=== PATIENT | male | born 1990 | race African-American/Black ===

== ENCOUNTER 2019-03-10 09:40 | Emergency (ER) | payer SELFPAY ==
[~2019-03-10] VITALS: Ht 188 cm; Wt 129.4 kg
[~2019-03-10 09:40] MED LIST: ACYC800T5 PO; PRED20TA PO
[2019-03-10 09:41] VITALS: BP 134/85; PULSE 66; RESP 22; Ht 188 cm; Wt 129.4 kg
--- NOTE | 2019-03-10 10:20 | ERD ---
ER Documentation Chief Complaint Chief Complaint LEFT FINGER NUMBNESS; PAIN @ LEFT EYE HPI Patient is a 28-year-old male otherwise healthy presents with paresthesias in his left fourth and fifth fingers that usually only occurs in the morning after he wakes up with occasional sharp pain. He denies any injury or trauma. He has not taken any medications for this. He is also complaining of left-sided facial pain with twitching in the left eye and states he has a facial droop on the left side. No upper or lower extremity weakness. Symptoms have been going on intermittently for a week. ROS All systems reviewed and are negative except as per history of present illness. Medications Home Meds Active Scripts Prednisone* (Prednisone*) 20 Mg Tab, 60 MG PO DAILY for 5 Days, TAB Prov:ART VO PA-C 03/10/19 Acyclovir* (Zovirax*) 800 Mg Tablet, 800 MG PO 5 TIMES DAILY for 7 Days, TAB Prov:ART VO PA-C 03/10/19 FmHx Family History: No diabetes Physical Exam Vitals Vital Signs Date Temp Pulse Resp B/P (MAP) Pulse Ox O2 O2 Flow FiO2 Time Delivery Rate 03/10/19 97.8 66 22 134/85 99 09:41 (101) Physical Exam INITIAL VITAL SIGNS: Reviewed by me GENERAL: Awake, alert and oriented x 4, well appearing, nontoxic, speaking in full sentences. No acute distress HEAD: Atraumatic NECK: Supple. No masses. Full range of motion. No meningismus. No midline tenderness. EYES: EOMI. PERRL. EAR: No tenderness over the mastoids bilaterally. No exudates in the canals. TMs nonerythematous. NOSE: Normal nose. THROAT: No tonilar erythema or edema. No exudates. Uvula midline. No kissing tonsils. RESPIRATORY: Clear to auscultation bilaterally. Symmetric chest wall rise. No wheezing or rales. No accessory muscle use. CV: Regular rate and rhythm. No murmurs, rubs, or gallops. Hand - left: Skin: No laceration, or evidence of external trauma Compartments: Soft Sensation: Intact shoulder/pinky/middle finger/thumb web space Bones: Nontender Snuffbox: Nontender Joints: No effusion NEUROLOGIC: Normal mental status and speech. Face is symmetric. Moves all extremities equally. Motor and sensory distally intact. Normal coordination. Ambulates with a strong steady gait. Procedures/MDM 28-year-old male presents with paresthesias in left hand, likely cubital tunnel syndrome. 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 Low suspicion for ischemic stroke. Prescription for acyclovir and prednisone given. Patient counseled regarding my diagnostic impression and care plan. Prior to discharge all questions answered. Pt agrees with treatment plan and understands strict return precautions. Pt is instructed to follow up with primary care provider within 24-48 hours. Precautionary instructions provided including instructions to return to the ER if not improving or for any worsening or changing symptoms or concerns. Departure Diagnosis: Primary Impression: Paresthesia Additional Impression: Zaragoza's palsy Condition: Stable Patient Instructions: Paraesthesias Additional Instructions: Call your primary care doctor TOMORROW for an appointment during the next 1-2 days.See the doctor sooner or return here if your condition worsens before your appointment time. ART VO PA-C Mar 10, 2019 10:20
== END 2019-03-10 10:29 | disposition home or self-care (01) ==
LOC: FTE 09:40
DX: G51.0 Bell's palsy (principal)
CPT/HCPCS: 99283